=== PATIENT | male | born 1955 | race African-American/Black ===

== ENCOUNTER → 2016-08-14 | Outpatient (CLI) | payer MEDICARE ==
[2016-08-14 13:11] LABS: ANION GAP 11 (5-19); BLOOD UREA NITROGEN 16 mg/dL (7-20); CALCIUM 9.5 mg/dL (8.4-10.2); CARBON DIOXIDE 23 mmol/L (22-30); CHLORIDE 106 mmol/L (98-107); CREATININE RESULT 1.35 mg/dL (0.52-1.25); GLUCOSE 87 mg/dL (75-110); POTASSIUM 4.6 mmol/L (3.6-5.0); SODIUM 140.1 mmol/L (137-145); URIC ACID 8.3 mg/dL (3.5-8.5)
== END ==
LOC: OD 11:50
PROVIDERS: ATTEND Internal Medicine Nephrology
DX: N18.2 Chronic kidney disease, stage 2 (mild) (principal); M10.9 Gout, unspecified
CPT/HCPCS: 36415; 80048; 84550

== ENCOUNTER 2017-08-15 17:23 | Emergency (ER) | payer MEDICARE, MEDICAID ==
--- NOTE | 2017-08-15 17:48 | ER Document Report ---
ED Medical Screen (RME) - General Chief Complaint: Groin Pain Stated Complaint: SWELLING IN GROIN AREA Time Seen by Provider: 08/15/17 17:42 Notes: RAPID MEDICAL EVALUATION DISCLOSURE I have seen this patient as part of a Rapid Medical Evaluation and, if applicable, placed any initially appropriate orders. The patient will be seen and fully evaluated, including a full history and physical exam, by a provider ( in Main ED or Fast Track) when a room becomes available. 62-year-old male here with complaints of right groin swelling and pain ongoing for the past 1 week. The symptoms were of gradual onset and have been progressively worsening. Today the pain and swelling acutely worsened however patient states that he did not cough, strain, or do any heavy lifting. He is having difficulty telling me whether or not the symptoms worsen with coughing, straining, or heavy lifting. Last normal bowel movement was a few hours ago. He is not vomiting or nauseous. He denies any prior history of hernias. EXAM Minimal appreciable palpable swelling just medial of the right inguinal crease No significant TTP of this region TRAVEL OUTSIDE OF THE [place] IN LAST 30 DAYS: No - Related Data Allergies/Adverse Reactions: No Known Allergies Allergy (Verified 08/15/17 17:25) Past Medical History Psychiatric Medical History: Reports: Hx Depression Past Surgical History: Reports: Hx Orthopedic Surgery - jaw - Immunizations Hx Diphtheria, Pertussis, Tetanus Vaccination: No Physical Exam - Vital signs Vitals: Temp Pulse Resp BP Pulse Ox 98.4 F 80 16 134/62 H 95 08/15/17 17:30 08/15/17 17:30 08/15/17 17:30 08/15/17 17:30 08/15/17 17:30 Course - Vital Signs Vital signs: Temp Pulse Resp BP Pulse Ox 98.4 F 80 16 134/62 H 95 08/15/17 17:30 08/15/17 17:30 08/15/17 17:30 08/15/17 17:30 08/15/17 17:30 Doctor's Discharge - Discharge Referrals: NUNU HUERTA MD [Primary Care Provider] - Follow up as needed
--- NOTE | 2017-08-15 18:12 | RADIOLOGY REPORT (SQ) ---
EXAM DESCRIPTION: ACUTE ABDOMEN SERIES COMPLETED DATE/TIME: 08/15/2017 5:56 pm REASON FOR STUDY: R inguinal hernia? eval AF levels SBO COMPARISON: None. NUMBER OF VIEWS: Three views. TECHNIQUE: PA chest, supine abdomen and upright/decubitus abdomen radiographic images acquired. LIMITATIONS: None. FINDINGS: CHEST: Lungs clear of infiltrates. FREE AIR: None. No abnormal gas collections. BOWEL GAS PATTERN: Few small bowel loops with air fluid levels. CALCIFICATIONS: No suspicious calcifications. HARDWARE: None in the abdomen. SOFT TISSUES: No gross mass or suggestion of organomegaly. BONES: No acute fracture. No worrisome bone lesions. OTHER: No other significant finding. IMPRESSION: NONSPECIFIC BOWEL GAS PATTERN. Few small bowel loops with air fluid levels.. TECHNICAL DOCUMENTATION: JOB ID: [id number] 2010 [employer]- All Rights Reserved Reading location - IP/workstation name: [email or web address]
--- NOTE | 2017-08-15 18:38 | ER Document Report ---
ED GI/ - General Chief Complaint: Groin Pain Stated Complaint: SWELLING IN GROIN AREA Time Seen by Provider: 08/15/17 17:42 Mode of Arrival: Ambulatory Information source: Patient TRAVEL OUTSIDE OF THE [place] IN LAST 30 DAYS: No - HPI Patient complains to provider of: Groin pain - AND MASS Onset: Other - SEVERAL DAYS - Related Data Allergies/Adverse Reactions: No Known Allergies Allergy (Verified 08/15/17 17:25) Past Medical History - Social History Smoking Status: Current Every Day Smoker Frequency of alcohol use: Occasional Drug Abuse: None Family History: None Patient has suicidal ideation: No Patient has homicidal ideation: No - Medical History Medical History: Negative Renal/ Medical History: Denies: Hx Peritoneal Dialysis Psychiatric Medical History: Reports: Hx Depression Past Surgical History: Reports: Hx Orthopedic Surgery - jaw - Immunizations Hx Diphtheria, Pertussis, Tetanus Vaccination: No Review of Systems - Review of Systems Constitutional: No symptoms reported EENT: No symptoms reported Cardiovascular: No symptoms reported Respiratory: No symptoms reported Gastrointestinal: No symptoms reported. denies: Diarrhea, Nausea, Vomiting, Constipation, Poor appetite Genitourinary: See HPI Male Genitourinary: See HPI Musculoskeletal: No symptoms reported Skin: No symptoms reported Neurological/Psychological: No symptoms reported Physical Exam - Vital signs Vitals: Temp Pulse Resp BP Pulse Ox 98.4 F 80 16 134/62 H 95 08/15/17 17:30 08/15/17 17:30 08/15/17 17:30 08/15/17 17:30 08/15/17 17:30 Interpretation: Normal. No: Tachycardic, Tachypneic - General General appearance: Appears well, Alert In distress: None - HEENT Head: Normocephalic Eyes: Normal Conjunctiva: Normal Ears: Normal Nasal: Normal Mouth/Lips: Normal Mucous membranes: Normal - Respiratory Respiratory status: No respiratory distress - Cardiovascular Rhythm: Regular - Abdominal Inspection: Normal Distension: No distension - Genitourinary Tenderness: No: Testicle tender, Epididymis tender Scrotum: Normal. No: Swelling, Redness, Hot to touch Notes: Mild tenderness of the right inguinal canal. Small indirect hernia palpable upon Valsalva maneuver, reduces spontaneously.. No direct hernia. - Back Back: Normal - Extremities General upper extremity: Normal inspection General lower extremity: Normal inspection - Neurological Neuro grossly intact: Yes Cognition: Normal Orientation: AAOx4 - Psychological Associated symptoms: Normal affect, Normal mood - Skin Skin Temperature: Warm Skin Moisture: Dry Skin Color: Normal Skin Turgor: Elastic Course - Vital Signs Vital signs: Temp Pulse Resp BP Pulse Ox 98.4 F 80 16 134/62 H 95 08/15/17 17:30 08/15/17 17:30 08/15/17 17:30 08/15/17 17:30 08/15/17 17:30 - Diagnostic Test Radiology reviewed: Image reviewed, Reports reviewed Discharge - Discharge Clinical Impression: Inguinal hernia, right Condition: Stable Disposition: HOME, SELF-CARE Instructions: Hernia ([facility]) Additional Instructions: AVOID STRAINING, FORCEFUL SNEEZING OR COUGHING, OR ANYTHING ELSE THAT RAISES THE PRESSURE IN YOUR ABDOMEN. FOLLOW UP WITH [facility] FOR FURTHER EVALUATION IF YOU WISH TO HAVE THE HERNIA REPAIRED. RETURN TO E.R. IF PROBLEMS. Referrals: ALMA SEGOVIA MD [ACTIVE STAFF] - Follow up as needed
[2017-08-15 19:50] VITALS: BP 138/76
== END 2017-08-15 19:49 | disposition home or self-care (01) ==
LOC: ER 17:23
DX: K40.90 Unilateral inguinal hernia, without obstruction or gangrene, not specified as recurrent (principal); R10.30 Lower abdominal pain, unspecified; R19.09 Other intra-abdominal and pelvic swelling, mass and lump; F17.200 Nicotine dependence, unspecified, uncomplicated
CPT/HCPCS: 74022; 99283

== ENCOUNTER 2017-11-25 08:21 | Day surgery (SDC) | payer MEDICARE, MEDICAID ==
--- NOTE | 2017-11-07 09:51 | RADIOLOGY REPORT (SQ) ---
EXAM DESCRIPTION: CHEST PA/LATERAL COMPLETED DATE/TIME: 11/07/2017 9:40 am REASON FOR STUDY: PRE-OP COMPARISON: 08/15/2017 EXAM PARAMETERS: NUMBER OF VIEWS: two views TECHNIQUE: Digital Frontal and Lateral radiographic views of the chest acquired. RADIATION DOSE: NA LIMITATIONS: none FINDINGS: LUNGS AND PLEURA: No opacities, masses or pneumothorax. No pleural effusion. MEDIASTINUM AND HILAR STRUCTURES: No masses or contour abnormalities. HEART AND VASCULAR STRUCTURES: Heart normal size. No evidence for failure. BONES: No acute findings. HARDWARE: None in the chest. OTHER: No other significant finding. IMPRESSION: NO SIGNIFICANT RADIOGRAPHIC FINDING IN THE CHEST. TECHNICAL DOCUMENTATION: JOB ID: [id number] [employer]- All Rights Reserved Reading location - IP/workstation name: [email or web address]
[2017-11-07 11:02] LABS: HEMATOCRIT 47.9 % (37.9-51.0); HEMOGLOBIN 16.3 g/dL (13.5-17.0); MEAN CORPUSCULAR HEMOGLOBIN 30.3 pg (27.0-33.4); MEAN CORPUSCULAR HGB CONC 34.1 g/dL (32.0-36.0); MEAN CORPUSCULAR VOLUME 89 fl (80-97); PLATELET COUNT 272 10^3/uL (150-450); RED CELL DISTRIBUTION WIDTH 14.6 % (11.5-14.0); WHITE BLOOD COUNT 9.3 10^3/uL (4.0-10.5)
[2017-11-07 11:26] LABS: ALANINE AMINOTRANSFERASE 24 U/L (21-72); ALBUMIN 4.2 g/dL (3.5-5.0); ALKALINE PHOSPHATASE 69 U/L (38-126); ANION GAP 10 (5-19); ASPARTATE AMINO TRANSFERASE 32 U/L (17-59); BILIRUBIN,DIRECT 0.2 mg/dL (0.0-0.4); BILIRUBIN,TOTAL 0.6 mg/dL (0.2-1.3); BLOOD UREA NITROGEN 11 mg/dL (7-20); CALCIUM 9.7 mg/dL (8.4-10.2); CARBON DIOXIDE 24 mmol/L (22-30); CHLORIDE 106 mmol/L (98-107); GLUCOSE 96 mg/dL (75-110); POTASSIUM 4.5 mmol/L (3.6-5.0); SODIUM 140.1 mmol/L (137-145); TOTAL PROTEIN 7.6 g/dL (6.3-8.2)
--- NOTE | 2017-11-07 13:17 | EKG REPORT ---
SEVERITY:- NORMAL ECG - SINUS RHYTHM : Confirmed by: Alex Wharton MD 07-Nov-2017 13:16:10
[~2017-11-25 08:21] MED LIST: BUPIVACAINE HCL 0.5 % INJ/PF 30 ML SDV ONE; CEFAZOLIN 2 GM/D5W RTU 2 GM/50 ML RTUPB IV PRN; DEXAMETHASONE SOD PHOSPHATE INJ 4 MG/1 ML VIAL ONE; GLYCOPYRROLATE 1 MG/5 ML SYRINGE ONE; KETOROLAC TROMETHAMINE 60 MG/2 ML SDV ONE; LACTATED RINGERS 1000 ML IV PRN; LIDOCAINE 0.5% INJ-PF (5 MG/ML) 50 ML SDV SUBCUT PRN; METOCLOPRAMIDE HCL INJ/PF 10 MG/2 ML SDV ONE; NEOSTIGMINE METHYLSULFATE 10 MG/10 ML VIAL ONE; ONDANSETRON HCL INJ/PF 4 MG/2 ML SDV ONE; PHENYLEPHRINE HCL INJ/PF 10 MG/1 ML SDV ONE; ROCURONIUM BROMIDE INJ 50 MG/5 ML VIAL IV ONE; SUCCINYLCHOLINE CHLORIDE INJ 200 MG/10 ML VIAL ONE
[2017-11-25] MEDS ORDERED: CEFAZOLIN 2 GM/D5W RTU 2 GM/50 ML RTUPB IV ONE (08:29)
[2017-11-25] MEDS ORDERED: DEXMEDETOMIDINE INJ 80 MCG/20 ML VIAL IV ONE (10:30)
[2017-11-25] MEDS ORDERED: EPHEDRINE SULFATE INJ 50 MG/1 ML AMPULE ONE (10:30)
[2017-11-25] MEDS ORDERED: MIDAZOLAM 2 MG/2 ML INJ ONE (10:30)
[2017-11-25] MEDS ORDERED: FENTANYL CITRATE INJ/PF 250 MCG/5 ML AMPULE ONE (10:30)
[2017-11-25] MEDS ORDERED: LIDOCAINE 2% INJ-PF (100 MG/5 ML) SYRINGE ONE (10:30)
[2017-11-25] MEDS ORDERED: PROPOFOL INJ 200 MG/20 ML VIAL IV ONE (10:31)
[2017-11-25] MEDS ORDERED: PROMETHAZINE HCL INJ 25 MG/1 ML VIAL IV PRN ×2 (12:32)
[2017-11-25] MEDS ORDERED: FENTANYL CITRATE INJ/PF 100 MCG/2 ML AMPUL IV PRN ×3 (12:32)
[2017-11-25] MEDS ORDERED: DIPHENHYDRAMINE HCL 50 MG/ML VIAL IV PRN (12:32)
[2017-11-25] MEDS ORDERED: ONDANSETRON HCL INJ/PF 4 MG/2 ML SDV IV PRN (12:32)
[2017-11-25] MEDS ORDERED: MEPERIDINE HCL/PF INJ 25 MG/1 ML DISP.SYRIN IV PRN (12:32)
[2017-11-25] MEDS ORDERED: MEPERIDINE HCL/PF INJ 25 MG/1 ML DISP.SYRIN ONE (13:14)
[2017-11-25] MEDS ORDERED: ACETAMINOPHEN 1,000 MG/100 ML RTUPB IV ONE (13:19)
--- NOTE | 2017-11-25 13:20 | Discharge Summary ---
Discharge Summary (SDC) - Discharge Final Diagnosis: Bilateral inguinal hernia Date of Surgery: 11/25/17 Discharge Date: 11/25/17 Condition: Stable Treatment or Instructions: Discharge home. Diet as tolerated. Activity: No lifting greater than 10 pounds x 4 weeks. Follow-up with me in 7-10 days. [place] 10/325 mg p.o. every 6 hours as needed pain. Okay to shower in 48 hours. No tub baths times 2 weeks. Discharge Diet: As Tolerated Respiratory Treatments at Home: Deep Breathing/Coughing, Incentive Spirometer Discharge Activity: No Lifting Over 10 Pounds, No tub bath - Times 2 weeks. Home Care Assistance: None Needed Report the Following to Your Physician Immediately: Shortness of Breath, Nausea , Vomiting, Increase in Pain, Fever over 101 Degrees, Unusual Bleeding, Redness , Swelling, Warmth
[2017-11-25] MEDS ORDERED: FENTANYL CITRATE INJ/PF 100 MCG/2 ML AMPUL ONE (13:26)
--- NOTE | 2017-11-25 13:34 | Operative Report ---
Nonrecallable Operative Report DATE OF SURGERY: 11/25/17 PREOPERATIVE DIAGNOSIS: Bilateral inguinal hernia POSTOPERATIVE DIAGNOSIS: Same as above OPERATION: Robot-assisted bilateral laparoscopic inguinal hernia repair with mesh SURGEON: NAZANIN MCCRATHY ANESTHESIA: GA TISSUE REMOVED OR ALTERED: None COMPLICATIONS: None apparent ESTIMATED BLOOD LOSS: Minimal PROCEDURE: Drains/implants: Right and left large 3 DMax inguinal hernia mesh. Procedure in detail: After informed consent was obtained, the patient was brought to the operating room and laid in the supine position. The area of the abdomen was prepped and draped in a normal sterile fashion. An incision was created in the supraumbilical position. This was deepened through the use of blunt dissection. The linea alba fascia was incised sharply, the abdomen was entered sharply. The balloon trocar was inserted, and pneumoperitoneum was achieved. Next, right and left lateral 8 mm trochars were placed into the abdominal cavity under direct laparoscopic visualization. The robot was then brought over the patient and docked appropriately. I then assumed my position at the surgeon's console. Attention was turned to the right groin. The indirect inguinal hernia defect was large. A preperitoneal dissection was undertaken. The peritoneum was scored approximately 2-3 cm superior to the defect. The preperitoneal dissection was undertaken using sharp dissection, blunt dissection , and Bovie electrocautery. The hernia sac was large, however it was carefully freed from the cord structures. This was done meticulously, to avoid injury to the cord structures. Once the hernia sac was freed, it was inverted. The right sided large 3 DMax inguinal hernia mesh was placed into the preperitoneal space. It was sutured to the anterior abdominal wall medially and superiorly using 2-0 Vicryl suture. Once the mesh was found to lie in good place, the peritoneum was closed using 2-0 V lock suture in simple running fashion. Once the right-sided repair was completed, attention was turned to the left side. The left side in turn was opened. The peritoneum was scored 2-3 cm superior to the small indirect inguinal hernia defect. A preperitoneal dissection was undertaken. This was done using blunt dissection, sharp dissection, and electrocautery. A large lipoma of the cord was reduced from the left inguinal canal. The hernia sac was freed from the cord structures very carefully, so as not to injure the cord structures. A large left-sided 3 DMax inguinal hernia mesh was then placed into the preperitoneal space. It was sutured medially and superiorly using 2-0 Vicryl suture. The peritoneum was then closed over the mesh using 2-0 V lock suture. The repairs were then inspected. They were found to be in good order. The robot was undocked, and the trochars were removed. The supraumbilical abdominal fascia was closed using 0 Vicryl suture in figure- of-eight fashion. The overlying skin was closed using 4-0 Vicryl Rapide suture in subcuticular fashion. Dressings were placed, and the procedure was concluded. All sponge, instrument, needle counts were correct x2. Condition: Stable.
[2017-11-25] MEDS ORDERED: HYDROCODONE/ACETAMINOPHEN 10-325 MG TABLET PO PRN (14:08)
[2017-11-25] MEDS ORDERED: HYDROCODONE/ACETAMINOPHEN 10-325 MG TABLET ONE (14:34)
[2017-11-25 16:35] VITALS: BP 150/85
== END 2017-11-25 16:00 | disposition home or self-care (01) ==
LOC: OROUT 08:21
PROVIDERS: ATTEND Surgery
DX: K40.20 Bilateral inguinal hernia, without obstruction or gangrene, not specified as recurrent (principal); M10.9 Gout, unspecified; F17.210 Nicotine dependence, cigarettes, uncomplicated; Z01.818 Encounter for other preprocedural examination
CPT/HCPCS: 49650; S2900; 36415; 71046; 80053; 830; 85027; 86850; 86900; 86901; 93005; 93010; 94640; C1781; J0131; J0330; J0690; J1100; J1885; J2001; J2175; J2250; J2370; J2405; J2704; J2765; J3010; J3490